=== PATIENT | female | born 1980 | race Caucasian/White ===

== ENCOUNTER 2025-06-05 14:15 | Outpatient (CLI) | payer OTHER | END 2025-06-05 14:16 | disposition home or self-care (01) | LOC: CSHMAMMO 14:15 | PROVIDERS: ATTEND Family Medicine | DX: Z12.31 Encounter for screening mammogram for malignant neoplasm of breast (principal); N64.89 Other specified disorders of breast | CPT/HCPCS: 77063; 77067 ==